=== PATIENT | male | born 1970 | race Caucasian/White ===

== ENCOUNTER 2022-08-02 21:55 | Emergency (ER) | payer OTHER ==
[~2022-08-02] VITALS: Ht 168 cm; Wt 85.0 kg
[2022-08-02] MEDS ORDERED: BUDE10.2 IH (22:07)
[2022-08-02] MEDS ORDERED: ASPIRIN 81 MG CHEW (CHILDREN'S ASA) PO ONE (22:15)
[2022-08-02 22:19] LABS: BASOPHILS # (AUTO) 0.1 10^3/uL (0.0-0.1); BASOPHILS % (AUTO) 1 % (0-10); EOSINOPHILS # (AUTO) 0.4 10^3/uL (0.0-0.3); EOSINOPHILS % (AUTO) 5 % (0-10); HEMATOCRIT 46 % (40-54); LYMPHOCYTES # (AUTO) 2.5 10^3/uL (1.0-4.0); LYMPHOCYTES % (AUTO) 30 % (12-44); MEAN CORPUSCULAR HEMOGLOBIN 29 pg (25-34); MEAN CORPUSCULAR HGB CONC 35 g/dL (32-36); MEAN CORPUSCULAR VOLUME 83 fL (80-99); MEAN PLATELET VOLUME 8.7 fL (9.0-12.2); MONOCYTES % (AUTO) 12 % (0-12); NEUTROPHILS # (AUTO) 4.4 10^3/uL (1.8-7.8); NEUTROPHILS % (AUTO) 53 % (42-75); PLATELET COUNT 261 10^3/uL (130-400); WHITE BLOOD COUNT 8.4 10^3/uL (4.3-11.0)
[2022-08-02 22:32] LABS: FIBRIN DEGRADATION PRODUCTS 0.28 UG/ML (0.00-0.49); PROTHROMBIN TIME PATIENT 13.7 SEC (12.2-14.7)
[2022-08-02 22:40] LABS: ALANINE AMINOTRANSFERASE 46 U/L (0-55); ALBUMIN 4.5 GM/DL (3.2-4.5); ALKALINE PHOSPHATASE 70 U/L (40-136); BILIRUBIN,TOTAL 0.5 MG/DL (0.1-1.0); BUN/CREATININE RATIO 11; CALCIUM 9.7 MG/DL (8.5-10.1); CARBON DIOXIDE 26 MMOL/L (21-32); CHLORIDE 103 MMOL/L (98-107); CREATINE KINASE 68 U/L (30-200); CREATININE SERUM 0.87 MG/DL (0.60-1.30); GFR ESTIMATED 105; GLUCOSE 106 MG/DL (70-105); MAGNESIUM 2.2 MG/DL (1.6-2.4); POTASSIUM 3.4 MMOL/L (3.6-5.0); SODIUM 140 MMOL/L (135-145); TOTAL PROTEIN 8.2 GM/DL (6.4-8.2)
[2022-08-02 23:00] LABS: CREATINE KINASE MB 0.5 NG/ML (<6.6); TSH (THYROID ANALYZER) 2.69 UIU/ML (0.35-4.94)
--- NOTE | 2022-08-02 23:04 | ED Cardiac General ---
History of Present Illness General Chief Complaint: Cardiac/General Problems Stated Complaint: HEART PALPITATIONS,FELT LIKE PASSING OUT Nursing Triage Note: intermittant palpitations since may. holter monitor 2 weeks ago. palpitaions/dizziness worse today. Source: patient (TALKS AT GREAT LENGTH) History of Present Illness Date Seen by Provider: Aug 02, 2022 Time Seen by Provider: 22:15 Initial Comments PT ARRIVES VIA POV FROM HOME IN [place] C/O PALPITATIONS THIS IS AN ONGOING PROBLEM FOR THE LAST FEW MONTHS WAS SEEN BY [facility] AND ALSO [facility]PLE [facility] WEEKS AGO FOR THIS PROBLEM HAD A HEART MONITOR A COUPLE OF WEEKS AGO, THAT SHOWED PAC'S AND PVC'S PT STATES "IT FEELS LIKE GREAT BIG AIR BUBBLES ARE GOING THROUGH MY CHEST" STATES "IT WILL BEAT ONE OR TWO TIMES AND THEN IT WILL PAUSE" STATES IT IS NOT RELATED TO ANY PARTICULAR ACTIVITY, AND HE NOTICES IT WHEN HIS IS RELAXED. DOES NOT REALLY NOTICE IT MUCH WHEN HE IS WORKING Allergies and Home Medications Allergies Coded Allergies: No Known Drug Allergies (Unverified , 08/02/22) Patient Home Medication List Budesonide/Formoterol Fumarate (Symbicort 160-4.5 Mcg Inhaler) 160 Mcg-4.5 Mcg/Actuation Hfa.aer.ad, 2 PUFF IH BID, (Reported) Entered as Reported by: WHITNEY SHEPARD on 08/02/222206 Last Action: New Order Past Etucdoi-Mvbqav-Bzdzzw Hx Patient Social History Tobacco Use?: No Substance use?: No Alcohol Use?: No Pt feels they are or have been: No Immunizations Up To Date First/Initial COVID19 Vaccinat: na Past Medical History Surgery/Hospitalization HX: palpitations, asthma Physical Exam Vital Signs Vital Signs - First Documented 08/02/22 22:01 Temp 36.4 Pulse 89 Resp 16 B/P (MAP) 173/99 (123) Pulse Ox 99 O2 Delivery Room Air Capillary Refill : Less Than 3 Seconds Height, Weight, BMI Height: '" Weight: lbs. oz. kg; 30.00 BMI Method: Progress/Results/Core Measures Results/Orders Lab Results Laboratory Tests Test 08/02/22 22:10 Range/Units White Blood Count 8.4 4.3-11.0 10^3/uL Red Blood Count 5.52 4.30-5.52 10^6/uL Hemoglobin 16.0 13.3-17.7 g/dL Hematocrit 46 40-54 % Mean Corpuscular Volume 83 80-99 fL Mean Corpuscular Hemoglobin 29 25-34 pg Mean Corpuscular Hemoglobin Concent 35 32-36 g/dL Red Cell Distribution Width 12.3 10.0-14.5 % Platelet Count 261 130-400 10^3/uL Mean Platelet Volume 8.7 L 9.0-12.2 fL Immature Granulocyte % (Auto) 0 % Neutrophils (%) (Auto) 53 42-75 % Lymphocytes (%) (Auto) 30 12-44 % Monocytes (%) (Auto) 12 0-12 % Eosinophils (%) (Auto) 5 0-10 % Basophils (%) (Auto) 1 0-10 % Neutrophils # (Auto) 4.4 1.8-7.8 10^3/uL Lymphocytes # (Auto) 2.5 1.0-4.0 10^3/uL Monocytes # (Auto) 1.0 0.0-1.0 10^3/uL Eosinophils # (Auto) 0.4 H 0.0-0.3 10^3/uL Basophils # (Auto) 0.1 0.0-0.1 10^3/uL Immature Granulocyte # (Auto) 0.0 0.0-0.1 10^3/uL Prothrombin Time 13.7 12.2-14.7 SEC INR Comment 1.0 0.8-1.4 Activated Partial Thromboplast Time 32 24-35 SEC D-Dimer 0.28 0.00-0.49 UG/ML Sodium Level 140 135-145 MMOL/L Potassium Level 3.4 L 3.6-5.0 MMOL/L Chloride Level 103 98-107 MMOL/L Carbon Dioxide Level 26 21-32 MMOL/L Anion Gap 11 5-14 MMOL/L Blood Urea Nitrogen 10 7-18 MG/DL Creatinine 0.87 0.60-1.30 MG/DL Estimat Glomerular Filtration Rate 105 BUN/Creatinine Ratio 11 Glucose Level 106 H 70-105 MG/DL Calcium Level 9.7 8.5-10.1 MG/DL Corrected Calcium 9.3 8.5-10.1 MG/DL Magnesium Level 2.2 1.6-2.4 MG/DL Total Bilirubin 0.5 0.1-1.0 MG/DL Aspartate Amino Transf (AST/SGOT) 25 5-34 U/L Alanine Aminotransferase (ALT/SGPT) 46 0-55 U/L Alkaline Phosphatase 70 40-136 U/L Total Creatine Kinase 68 30-200 U/L Creatine Kinase MB 0.5 <6.6 NG/ML Myoglobin 27.5 10.0-92.0 NG/ML Troponin I < 0.028 <0.028 NG/ML B-Type Natriuretic Peptide 10.5 <100.0 PG/ML Total Protein 8.2 6.4-8.2 GM/DL Albumin 4.5 3.2-4.5 GM/DL TSH Royal Testing 2.69 0.35-4.94 UIU/ML My Orders Orders - IDRIS DUARTE DO Ekg Tracing (08/02/22 22:07) Ed Iv/Invasive Line Start (08/02/22 22:14) O2 (08/02/22 22:14) Monitor-Rhythm Ecg Trace Only (08/02/22 22:14) Bnp Olamide (08/02/22 22:14) Cbc With Automated Diff (08/02/22 22:14) Comprehensive Metabolic Panel (08/02/22 22:14) Creatine Kinase (08/02/22 22:14) Creatine Kinase Mb (08/02/22 22:14) Fibrin Degradation Products (08/02/22 22:14) Magnesium (08/02/22 22:14) Protime With Inr (08/02/22 22:14) Partial Thromboplastin Time (08/02/22 22:14) Thyroid Analyzer (08/02/22 22:14) Myoglobin Serum (08/02/22 22:14) Troponin I Olamide (08/02/22 22:14) Chest 1 View, Ap/Pa Only (08/02/22 22:14) Aspirin Chewable Tablet (Baby Aspirin Ch (08/02/22 22:15) Medications Given in ED Current Medications Medications Dose Ordered Sig/Kendall Route Start Time Stop Time Status Last Admin Dose Admin Aspirin 324 mg ONCE ONCE PO 08/02/22 22:15 08/02/22 22:16 DC 08/02/22 22:25 324 MG Vital Signs/I&O 08/02/22 08/02/22 22:01 23:53 Temp 36.4 Pulse 89 69 Resp 16 14 B/P (MAP) 173/99 (123) 135/90 Pulse Ox 99 95 O2 Delivery Room Air Room Air 2 Blood Pressure Mean: 123 Initial ECG Impression Date: Aug 02, 2022 Initial ECG Impression Time: 22:08 Initial ECG Rate: 90 Initial ECG Rhythm: Normal Sinus Initial ECG Comparisson: No Previous ECG Available Diagnostic Imaging Comments CXR--NO ACUTE PROCESS, PENDING RADIOLOGIST REVIEW Reviewed: Reviewed by Me Departure Impression Primary Impression: Palpitations Disposition: 01 HOME, SELF-CARE Condition: Stable Departure-Patient Inst. Decision time for Depature: 23:40 Referrals: SULTANA ACUNA MD Patient Instructions: Palpitations (DC) Add. Discharge Instructions: HOME, REST FOLLOW UP WITH DR. ACUNA, [facility] [employer] [facility], FOR FURTHER CARE--CALL IN THE MORNING TO SCHEDULE APPOINTMENT All discharge instructions reviewed with patient and/or family. Voiced understanding. IDRIS DUARTE DO Aug 02, 2022 23:04
[2022-08-02 23:53] VITALS: BP 135/90
--- NOTE | 2022-08-03 08:21 | Diagnostic Imaging Report ---
INDICATION: Palpitations Frontal chest obtained at 1036 p.m. Heart and mediastinal silhouette are normal in appearance. The lungs are clear. There is no pneumothorax or pleural fluid. IMPRESSION: Negative chest. Dictated by: Dictated on workstation # [id number]
== END 2022-08-02 23:50 | disposition home or self-care (01) ==
LOC: ER 22:00
DX: R00.2 Palpitations (principal); Z28.310 Unvaccinated for COVID-19
CPT/HCPCS: 36415; 71045; 80053; 82550; 82553; 83735; 83874; 83880; 84443; 84484; 85025; 85379; 85610; 85730; 93005; 93041

== ENCOUNTER → 2022-08-30 | Outpatient (CLI) | payer OTHER ==
[~2022-08-30] MED LIST: BUDE10.2 IH
[2022-08-30 12:53] VITALS: BP 144/96
--- NOTE | 2022-08-30 14:47 | Cardiology Stress Test Report ---
Stress Test Report Date of Procedure/Referring: Date of Procedure: Aug 30, 2022 PCP Jayne Buckley Aprn Admitting Physician Admitting Physician: Attending Physician: Jimi Abernathy MD Indications: CP Baseline Heart Rate: 82 Baseline Blood Pressure: Blood Pressure Systolic: 144 Blood Pressure Diastolic: 96 Baseline EKG: Baseline EKG: NSR Summary/Conclusion: Summary: In summary, the patient started exercising with a baseline heart rate, blood pressure and EKG mentioned above Patient was able to exercise for a total of 7 minutes on Gopal protocol, METs 8.5 Maximum heart rate 158 Maximum blood pressure 192/94 Stress EKG, Minimal nondiagnostic changes Recovery EKG , Return to baseline Conclusion: 1. Good exercise tolerance for a total of 7 minutes on Gopal protocol, 8.5 METs, achieving 92 percent of maximum expected heart rate 2. Minimal nondiagnostic EKG changes with exercise returned to baseline during recovery 3. No arrhythmia was noted 4. Hypertensive response to exercise with peak blood pressure 192/94 return to baseline during recovery Copy Copies To 1: [facility] JIMI ABERNATHY MD Aug 30, 2022 14:47
== END ==
LOC: CARD 11:55
PROVIDERS: ATTEND Internal Medicine Cardiovascular Disease
DX: I25.10 Atherosclerotic heart disease of native coronary artery without angina pectoris (principal); I10 Essential (primary) hypertension
CPT/HCPCS: 93017; C8929; 93306